=== PATIENT | female | born 1970 | race Two or more races ===

== ENCOUNTER → 2016-07-13 | Outpatient (CLI) | payer OTHER ==
--- NOTE | 2016-07-13 11:36 | DX ---
Nasal bones - 4 views Indication: Trauma to nasal bridge. Technique: AP, Wick, and bilateral lateral views. Findings: The nasal bones are intact. No acute fracture. Minimal soft tissue swelling overlies the lo w frontal bone. . The paranasal sinuses are clear. The nasal septum is midline. Impression: Negative. No acute nasal fracture.
--- NOTE | 2016-07-13 11:47 | DX ---
Right Elbow, 3 Views, 10:25 AM Clinical History: 45-year-old female who sustained an injury on 07/09/2016, and complains of pain along the posterior elbow. Comparison Study: None. Findings: Bone mineralization is preserved. There is no acute fracture or dislocation. There is a nor mal appearance to the anterior humeral fat pad, with no posterior fat pad displacement. There is no l oose osteochondral body identified. Impression: There is no acute osseous abnormality identified.
== END ==
LOC: BRMIMAGING 10:16
DX: M25.521 Pain in right elbow (principal); S00.33XA Contusion of nose, initial encounter
CPT/HCPCS: 70160-PO; 73080-PO